=== PATIENT | male | born 1955 | race Caucasian/White ===

== ENCOUNTER 2021-04-25 07:42 | Inpatient (IN) | payer MEDICARE, SELFPAY ==
[2021-04-25] VITALS (19 sets, daily range): BP systolic 99–137; BP diastolic 55–67; PULSE 78–90; RESP 18–24; TEMP 36.2–37.8; O2SAT 88–96; BMI 38.7; BMI 40.9
--- NOTE | 2021-04-25 07:45 | ED_ITS ---
HPI - SOB/Dyspnea General Chief Complaint: Upper Respiratory Symptoms Stated Complaint: COVID+ Trouble breathing Time Seen by Provider: 04/25/21 07:45 History of Present Illness HPI Narrative: 66-year-old male former smoker with history of hypertension presents with a chief complaint of increasing shortness of breath, fatigue and poor appetite for the past few days. He states that he started having upper respiratory symptoms just over a week ago and had a positive COVID test at an [facility] a few days ago. He has a home pulse oximeter in has been checking more frequently because he has been feeling poorly and noted this morning it to be reading in the low 80s, hence his decision to come see us. He has had nausea and vomited 1 time but otherwise no GI symptoms. He has some nasal congestion and occasional sore throat he has felt feverish and had some mild chills. He becomes profoundly short of breath with minimal exertion he did receive both immunizations Related Data Allergies Allergy/AdvReac Type Severity Reaction Status Date / Time No Known Drug Allergies Allergy Verified 04/25/21 09:24 Review of Systems Review of Systems Narrative: GENERAL: See HPI HEENT: See HPI RESPIRATORY: See HPI CARDIOVASCULAR: Denies chest pain, palpitations, orthopnea, edema, GASTROINTESTINAL: Denies nausea, vomiting, abdominal pain, diarrhea, constipation, melena. : Denies dysuria, frequency, incontinence, hematuria, urinary retention. MUSCULOSKELETAL: denies weakness, joint pain, or bony pain SKIN: Denies rash, skin lesions, or other NEUROLOGIC: Denies weakness, headache, numbness, change in speech, confusion, seizures, incoordination. PSYCHIATRIC: No concerning psychosocial issues. 12 point review of systems is negative except for those stated above Patient History Social History Smoking Status: Former smoker Exam Narrative Exam Narrative: GENERAL: [66 year old patient appears stated age. Well-developed patient, in moderate distress. Increased work of breathing with very minimal exertion, initial pulse ox in the mid to upper 80s HEAD: Atraumatic. Normocephalic. EYES: Pupils equal round and reactive. Extraocular motions intact. No scleral icterus. No injection or drainage. ENT: Nose without bleeding, purulent drainage. Throat without erythema, tonsillar hypertrophy or exudate. Airway patent. NECK: Trachea midline. Non tender CARDIOVASCULAR: Regular rate and rhythm without murmurs, gallops, or rubs. RESPIRATORY: Clear to auscultation. Breath sounds equal bilaterally. No wheezes, rales, or rhonchi. GASTROINTESTINAL: Abdomen soft, non-tender, nondistended. EXTREMITIES: No edema or joint tenderness. BACK: Nontender without deformity or crepitance. No flank tenderness. NEURO: AOx3. SKIN: No rash or erythema of visible areas Initial Vital Signs Initial Vital Signs: Vital Signs Temperature 97.1 F L 04/25/21 07:53 Pulse Rate 90 04/25/21 07:53 Respiratory Rate 20 04/25/21 07:53 Blood Pressure 124/65 04/25/21 07:53 Pulse Oximetry 88 L 04/25/21 07:53 Course Orders Ordered: ED Orders 04/25/21 07:54 XR chest 1V Stat 04/25/21 07:56 COVID19 - ADMIT ([employer] swab/PCR) Stat 04/25/21 08:00 C-Reactive Protein Quant Stat Complete Blood Count AUTO DIFF Stat Comprehensive Metabolic Panel Stat D Dimer Stat Ferritin Stat Lactate (Lactic Acid) Stat Lactate Dehydrogenase Stat NT-proBNP (BNP-Adult 18+) Stat Procalcitonin Stat Troponin & CK Cardiac Panel Stat 04/25/21 08:25 Arterial Blood Gas Stat 04/25/21 08:33 Blood Culture Stat Acetaminophen (Acetaminophen 325 Mg Tablet) 650 mg PO Q6HR PRN PRN Reason: Fever/Mild Pain (1-3) Dexamethasone (Dexamethasone 10 Mg/Ml Vial) 6 mg IV DAILY [facility] Enoxaparin Sodium (Enoxaparin 40 Mg/0.4 Ml Syringe) 40 mg SUBCUT DAILY [facility] Remdesivir 100 mg/ Sodium (Chloride) 250 mls @ 250 mls/hr IV DAILY [facility] Stop: 04/29/21 09:59 Ondansetron HCl (Ondansetron 4 Mg/2 Ml Inj) 4 mg IV Q8HR PRN PRN Reason: Nausea And Vomiting Discontinued Medications Acetaminophen (Acetaminophen 325 Mg Tablet) 975 mg PO NOW ONE Stop: 04/25/21 09:40 Last Admin: 04/25/21 09:42 Dose: 975 mg Documented by: DEVIN Dexamethasone (Dexamethasone 10 Mg/Ml Vial) 6 mg IV NOW ONE Stop: 04/25/21 07:53 Last Admin: 04/25/21 08:31 Dose: 6 mg Documented by: SILVIO Remdesivir 200 mg/ Sodium (Chloride) 250 mls @ 250 mls/hr IV NOW ONE Stop: 04/25/21 08:51 Last Infusion: 04/25/21 09:52 Dose: 0 mls/hr Documented by: Admin: 04/25/21 08:32 Dose: 250 mls/hr Documented by: SILVIO Vital Signs Vital signs: Vital Signs - 8 hr 04/25/21 07:53 04/25/21 08:01 04/25/21 08:30 Temperature 97.1 F L Pulse Rate 90 87 87 Respiratory Rate 20 19 21 Blood Pressure 124/65 104/58 L Pulse Oximetry 88 L 91 90 L 04/25/21 09:00 04/25/21 09:30 Temperature Pulse Rate 84 83 Respiratory Rate 20 21 Blood Pressure 101/56 L 106/55 L Pulse Oximetry 96 95 MDM - SOB/Dyspnea Lab Data Result diagrams: 04/25/21 08:00 04/25/21 08:00 Labs: Lab Results 04/25/21 04/25/21 04/25/21 Range/Units 07:56 08:00 08:00 WBC (4.5-11.0) X10^3/uL RBC (4.5-5.9) X10^6/uL Hgb (13.5-17.5) g/dL Hct (41-53) % MCV (80-100) fL MCH (26-34) PG MCHC (30-36) % RDW (11.6-14.8) % Plt Count (150-400) X10^3/uL Neut % (Auto) (50-75) % Lymph % (Auto) (25-40) % [place] % (Auto) (3-14) % Eos % (Auto) (2-4) % Baso % (Auto) (0-2) % Neut # (Auto) (5831-2276) /uL Lymph # (Auto) (9138-2795) /uL Gordon # (Auto) (0-900) /uL Eos # (Auto) (0-450) /uL Baso # (Auto) (0-100) /uL D-Dimer 766 H (<230) ng/mL ABG pH (7.35-7.45) ABG pCO2 (35-45) mmHg ABG pO2 (80-100) mmHg ABG HCO3 (22-26) mmol/L ABG Total CO2 (21-31) mmol/L ABG O2 Saturation (95-100) % ABG Base Excess (-2-2) mmol/L FiO2 Sodium (137-145) mmol/L Potassium (3.4-5.1) mmol/L Chloride (98-107) mmol/L Carbon Dioxide (22-32) mmol/L BUN (9-20) mg/dL Creatinine (0.66-1.25) mg/dL Estimated GFR (>60) mL/min BUN/Creatinine Ratio (6-22) Glucose (80-110) mg/dL Lactate (0.7-2.1) mmol/L Calcium (8.4-10.2) mg/dL Ferritin (18-464) ng/mL Total Bilirubin (0.2-1.3) mg/dL AST (17-59) IU/L ALT (<50) IU/L Alkaline Phosphatase (38-126) U/L Lactate Dehydrogenase (313-618) U/L Total Creatine Kinase (55-170) U/L CK-MB (CK-2) (<2.37) ng/mL CK-MB (CK-2) Rel Index (1.5-5.0) % Troponin I (0.01-0.034) ng/mL C-Reactive Protein (<1.0) mg/dL NT-Pro-B Natriuret Pep (<125) pg/mL Total Protein (6.3-8.2) g/dL Albumin (3.5-5.0) g/dL Globulin (1.7-4.1) g/dL Albumin/Globulin Ratio (1.0-2.8) Procalcitonin 0.38 (<0.5) ng/mL SARS-CoV-2 (PCR) Positive H (Negative) 04/25/21 04/25/21 04/25/21 Range/Units 08:00 08:00 08:00 WBC 5.1 (4.5-11.0) X10^3/uL RBC 4.63 (4.5-5.9) X10^6/uL Hgb 13.1 L (13.5-17.5) g/dL Hct 39.1 L (41-53) % MCV 84.5 (80-100) fL MCH 28.3 (26-34) PG MCHC 33.5 (30-36) % RDW 15.5 H (11.6-14.8) % Plt Count 119 L (150-400) X10^3/uL Neut % (Auto) 81.5 H (50-75) % Lymph % (Auto) 7.5 L (25-40) % [place] % (Auto) 9.8 (3-14) % Eos % (Auto) 0.9 L (2-4) % Baso % (Auto) 0.3 (0-2) % Neut # (Auto) 4200 (2341-5840) /uL Lymph # (Auto) 400 L (6613-8921) /uL Gordon # (Auto) 500 (0-900) /uL Eos # (Auto) 0 (0-450) /uL Baso # (Auto) 0 (0-100) /uL D-Dimer (<230) ng/mL ABG pH (7.35-7.45) ABG pCO2 (35-45) mmHg ABG pO2 (80-100) mmHg ABG HCO3 (22-26) mmol/L ABG Total CO2 (21-31) mmol/L ABG O2 Saturation (95-100) % ABG Base Excess (-2-2) mmol/L FiO2 Sodium 134 L (137-145) mmol/L Potassium 3.6 (3.4-5.1) mmol/L Chloride 96 L (98-107) mmol/L Carbon Dioxide 26 (22-32) mmol/L BUN 41 H (9-20) mg/dL Creatinine 1.75 H (0.66-1.25) mg/dL Estimated GFR 39.2 L (>60) mL/min BUN/Creatinine Ratio 23.4 H (6-22) Glucose 265 H (80-110) mg/dL Lactate 2.2 H (0.7-2.1) mmol/L Calcium 9.0 (8.4-10.2) mg/dL Ferritin 576 H (18-464) ng/mL Total Bilirubin 0.7 (0.2-1.3) mg/dL AST 136 H (17-59) IU/L ALT 76 H (<50) IU/L Alkaline Phosphatase 82 (38-126) U/L Lactate Dehydrogenase 864 H (313-618) U/L Total Creatine Kinase 377 H (55-170) U/L CK-MB (CK-2) 0.68 (<2.37) ng/mL CK-MB (CK-2) Rel Index 0.2 L (1.5-5.0) % Troponin I 0.016 (0.01-0.034) ng/mL C-Reactive Protein 22.9 H (<1.0) mg/dL NT-Pro-B Natriuret Pep 57 (<125) pg/mL Total Protein 7.1 (6.3-8.2) g/dL Albumin 3.8 (3.5-5.0) g/dL Globulin 3.3 (1.7-4.1) g/dL Albumin/Globulin Ratio 1.2 (1.0-2.8) Procalcitonin (<0.5) ng/mL SARS-CoV-2 (PCR) (Negative) 04/25/21 Range/Units 08:25 WBC (4.5-11.0) X10^3/uL RBC (4.5-5.9) X10^6/uL Hgb (13.5-17.5) g/dL Hct (41-53) % MCV (80-100) fL MCH (26-34) PG MCHC (30-36) % RDW (11.6-14.8) % Plt Count (150-400) X10^3/uL Neut % (Auto) (50-75) % Lymph % (Auto) (25-40) % Gordon % (Auto) (3-14) % Eos % (Auto) (2-4) % Baso % (Auto) (0-2) % Neut # (Auto) (8922-7337) /uL Lymph # (Auto) (0252-6606) /uL Gordon # (Auto) (0-900) /uL Eos # (Auto) (0-450) /uL Baso # (Auto) (0-100) /uL D-Dimer (<230) ng/mL ABG pH 7.45 (7.35-7.45) ABG pCO2 38.0 (35-45) mmHg ABG pO2 60 L (80-100) mmHg ABG HCO3 27 H (22-26) mmol/L ABG Total CO2 28 (21-31) mmol/L ABG O2 Saturation 92 L (95-100) % ABG Base Excess 2.0 (-2-2) mmol/L FiO2 21 Sodium (137-145) mmol/L Potassium (3.4-5.1) mmol/L Chloride (98-107) mmol/L Carbon Dioxide (22-32) mmol/L BUN (9-20) mg/dL Creatinine (0.66-1.25) mg/dL Estimated GFR (>60) mL/min BUN/Creatinine Ratio (6-22) Glucose (80-110) mg/dL Lactate (0.7-2.1) mmol/L Calcium (8.4-10.2) mg/dL Ferritin (18-464) ng/mL Total Bilirubin (0.2-1.3) mg/dL AST (17-59) IU/L ALT (<50) IU/L Alkaline Phosphatase (38-126) U/L Lactate Dehydrogenase (313-618) U/L Total Creatine Kinase (55-170) U/L CK-MB (CK-2) (<2.37) ng/mL CK-MB (CK-2) Rel Index (1.5-5.0) % Troponin I (0.01-0.034) ng/mL C-Reactive Protein (<1.0) mg/dL NT-Pro-B Natriuret Pep (<125) pg/mL Total Protein (6.3-8.2) g/dL Albumin (3.5-5.0) g/dL Globulin (1.7-4.1) g/dL Albumin/Globulin Ratio (1.0-2.8) Procalcitonin (<0.5) ng/mL SARS-CoV-2 (PCR) (Negative) Imaging Data Chest x-ray: Radiologist's Impression: [address] [address] XRay Report Signed Patient: Jackson Rodriguez MR#: [id number] : 1955 Acct:[id number] Age/Sex: 66 / M Date of Service: 04/25/21 Loc: ED Accession Number: [id number] ?? Procedure: XR chest 1V Ordering Provider: Partha Hernandes D.O. PROCEDURE:? XR CHEST 1V ? INDICATIONS:? COVID+ trouble breathing ? TECHNIQUE:? One view of the chest was acquired.? ? COMPARISON:? None. ? FINDINGS:? ? Surgical changes and devices:? None.? ? Lungs and pleura:? Bilateral patchy interstitial type infiltrates are seen. Low lung volumes are noted. This causes a crowded appearance to the lung markings and limits evaluation.? No large pneumothorax or large pleural effusions are seen. ? ? Mediastinum:? Mediastinal contours appear normal.? Heart size is normal.? ? Bones and chest wall:? No suspicious bony lesions.? Overlying soft tissues appear unremarkable.? IMPRESSION:? Patchy bilateral interstitial infiltrates are seen, which are consistent with the known clinical history of COVID pneumonia.? ? ? Dictated by: Nigel Hinton M.D. on 04/25/2021 at 7:54 ? ? Approved by: Nigel Hinton M.D. on 04/25/2021 at 7:55 ? Discharge Plan Departure Patient Disposition: Admitted As Inpatient Admit Date/Time: 04/25/21 09:32 Admit Provider: Ok Joseph
--- NOTE | 2021-04-25 07:54 | DI.RAD.S_ITS ---
PROCEDURE: XR CHEST 1V INDICATIONS: COVID+ trouble breathing TECHNIQUE: One view of the chest was acquired. COMPARISON: None. FINDINGS: Surgical changes and devices: None. Lungs and pleura: Bilateral patchy interstitial type infiltrates are seen. Low lung volumes are noted. This causes a crowded appearance to the lung markings and limits evaluation. No large pneumothorax or large pleural effusions are seen. Mediastinum: Mediastinal contours appear normal. Heart size is normal. Bones and chest wall: No suspicious bony lesions. Overlying soft tissues appear unremarkable. IMPRESSION: Patchy bilateral interstitial infiltrates are seen, which are consistent with the known clinical history of COVID pneumonia. Dictated by: Nigel Hinton M.D. on 04/25/2021 at 7:54 Approved by: Nigel Hinton M.D. on 04/25/2021 at 7:55
[2021-04-25 08:19] LABS: Add Manual Diff / Slide Review NO; Basophils Absolute Auto 0 /uL (0-100); Basophils Percent Auto 0.3 % (0-2); Eosinophils Absolute Auto 0 /uL (0-450); Eosinophils Percent Auto 0.9 % (2-4); Hematocrit 39.1 % (41-53); Hemoglobin 13.1 g/dL (13.5-17.5); Lymphocytes Absolute Auto 400 /uL (1100-4500); Lymphocytes Percent Auto 7.5 % (25-40); Mean Corpuscular HGB Conc 33.5 % (30-36); Mean Corpuscular Hemoglobin 28.3 PG (26-34); Mean Corpuscular Volume 84.5 fL (80-100); Monocytes Absolute Auto 500 /uL (0-900); Monocytes Percent Auto 9.8 % (3-14); Neutrophils Absolute Auto 4200 /uL (1500-7000); Neutrophils Percent Auto 81.5 % (50-75); Platelet Count 119 X10^3/uL (150-400); Red Blood Cell Count 4.63 X10^6/uL (4.5-5.9); Red Cell Distribution Width 15.5 % (11.6-14.8); White Blood Cell Count 5.1 X10^3/uL (4.5-11.0)
[2021-04-25 08:29] LABS: D Dimer 766 ng/mL (<230)
[2021-04-25 08:31] LABS: Lactate (Lactic Acid) 2.2 mmol/L (0.7-2.1)
[2021-04-25] MEDS: DEXAMETHASONE 10 MG/ML VIAL 6 MG IV (08:31)
[2021-04-25] MEDS: REMDESIVIR 200 MG in SODIUM CHLORIDE 0.9% 210 ML 250 ML IV (08:32)
[2021-04-25 08:33] LABS: Alanine Aminotransferase 76 IU/L (<50); Albumin 3.8 g/dL (3.5-5.0); Albumin Globulin Ratio 1.2 (1.0-2.8); Alkaline Phosphatase 82 U/L (38-126); Aspartate Aminotransferase 136 IU/L (17-59); BUN Creatinine Ratio 23.4 (6-22); Bilirubin Total 0.7 mg/dL (0.2-1.3); Blood Urea Nitrogen 41 mg/dL (9-20); Carbon Dioxide 26 mmol/L (22-32); Chloride 96 mmol/L (98-107); Creatine Kinase 377 U/L (55-170); Estimated Glomerular Filt Rate 39.2 mL/min (>60); Globulin 3.3 g/dL (1.7-4.1); Glucose 265 mg/dL (80-110); HEMOLYSIS < 15 (0-50); Lactate Dehydrogenase 864 U/L (313-618); Potassium 3.6 mmol/L (3.4-5.1); Sodium 134 mmol/L (137-145); Total Protein 7.1 g/dL (6.3-8.2)
[2021-04-25 08:43] LABS: NT-proBNP (BNP-Adult 18+) 57 pg/mL (<125); Troponin I 0.016 ng/mL (0.01-0.034)
[2021-04-25 08:44] LABS: C-Reactive Protein Quant 22.9 mg/dL (<1.0)
[2021-04-25 08:46] LABS: CKMB % Relative Index 0.2 % (1.5-5.0); Creatine Kinase MB 0.68 ng/mL (<2.37)
[2021-04-25 08:47] LABS: Procalcitonin 0.38 ng/mL (<0.5)
[2021-04-25 08:53] LABS: Fractionated Inspired Oxygen 21; HCO3 ABG 27 mmol/L (22-26); Oxygen Saturation ABG 92 % (95-100); PO2 ABG 60 mmHg (80-100); TCO2 ABG 28 mmol/L (21-31); pH ABG 7.45 (7.35-7.45)
[2021-04-25 09:03] LABS: COVID19 - ADMIT (NP swab/PCR) POSITIVE (Negative)
[2021-04-25 09:06] LABS: Ferritin 576 ng/mL (18-464)
[2021-04-25] MEDS: ACETAMINOPHEN 325 MG TABLET 975 MG PO (09:42)
[2021-04-25 10:15] LABS: Reflexed Lactate in 2 Hours Y
[2021-04-25 11:16] LABS: Lactate 2HR (Lactic Acid Rflx) 1.8 mmol/L (0.7-2.1)
[2021-04-25] MEDS: INSULIN LISPRO 100 UNIT/ML 3ML VIAL SUBCUT ×3 (12:01→20:58)
[2021-04-25] MEDS: SODIUM CHLORIDE 0.9% FLUSH 10 ML IV (12:01)
--- NOTE | 2021-04-25 17:37 | P.HP_ITS ---
History of Present Illness History of Present Illness Date Patient Seen: 04/25/21 Time Patient Seen: 12:00 Chief complaint: COVID+ Trouble breathing Narrative: Mr. Rodriguez is a 66M with PMH DM, HTN, HL, hypothyroid who presents to the hospital with shortness of breath, malaise, lack of appetite. He states that he began having these symptoms approximately a week ago. He tested potivie for COVID. He has not been feeling feverish. He says this is the worst he has ever felt. He has been checking his oxygen level on a pulse ox and it was in the 80s today so he presented to the hospital. He did get vaccinated with moderna vaccine, both doses. In the ED workup was done, his vitals were notable for O2 sat in 80s on room air. His labs notable for WBC 5.1, hgb 13.1, creatinine 1.75. ABG showed pH 7.45, Pao2 60. CRP 22.9. Procal 0.38. COVID+. He had a chest xray that showed bilateral infiltrates. He was given fluids, dexamethasone and remdesivir and admitted for further treatment. When I saw him he was on supplemental oxygen and said it was the best he has felt in days. Family history: Father with CVA Patient History Medical History Diabetes Hyperlipemia Hypertension Hypothyroid Family & Social History Social History: household members spouse Prior Living Arrangements House Safety & Behavioral: Feels Safe in Current Yes Environment Been Physically Hurt or No Threatened By a Person Suicidal Ideation Description None Suicide Plan Description No Plan Tobacco & Substance use: Smoking Status Former smoker alcohol intake former Substance Use Type does not use Meds Home Medications and Allergies Home Medications Medication Instructions Recorded Confirmed Type allopurinol 300 mg tablet 300 mg PO DAILY 04/25/21 04/25/21 History hydrochlorothiazide 12.5 mg tablet 12.5 mg PO DAILY 04/25/21 04/25/21 History levothyroxine 125 mcg tablet 125 mcg PO DAILY 04/25/21 04/25/21 History lisinopril 20 mg tablet 20 mg PO DAILY 04/25/21 04/25/21 History metformin 1,000 mg tablet 1,000 mg PO BID 04/25/21 04/25/21 History simvastatin 40 mg tablet 40 mg PO DAILY 04/25/21 04/25/21 History Allergies Allergy/AdvReac Type Severity Reaction Status Date / Time No Known Drug Allergies Allergy Verified 04/25/21 09:24 Review of Systems Review of Systems Narrative: 14 systems reviewed and negative aside from what is noted in HPI Exam Vital Signs (past 8 hours): - 04/25/21 09:42 04/25/21 11:01 04/25/21 11:14 Temperature 100.1 F H 98 F Pulse Rate 87 Respiratory Rate 24 Blood Pressure 116/61 Pulse Oximetry 94 94 04/25/21 11:22 04/25/21 14:27 04/25/21 16:30 Temperature 98 F 97.8 F Pulse Rate 78 Respiratory Rate 20 Blood Pressure 99/63 Pulse Oximetry 92 92 Oxygen Delivery Method Nasal Cannula Oxygen Flow Rate 2 Narrative Exam Narrative: GEN: no acute distress HEENT: moist mucous membranes, PERRL NECK: trachea midline, no JVD CV: regular rate and rhythm no murmurs PULM: poor air movement bilaterally ABD: soft, nontender, nondistende, no organomegaly, normal bowel sounds EXT: warm and well perfused, no edema NEURO: awake and alert, moving all extremities with no focal deficits PSYCH: pleasant, cooperative Objective Labs Result Diagrams: 04/25/21 08:00 04/25/21 08:00 Labs: Laboratory Results - last 24 hr 04/25/21 04/25/21 04/25/21 07:56 08:00 08:00 WBC RBC Hgb Hct MCV MCH MCHC RDW Plt Count Neut % (Auto) Lymph % (Auto) [place] % (Auto) Eos % (Auto) Baso % (Auto) Neut # (Auto) Lymph # (Auto) [place] # (Auto) Eos # (Auto) Baso # (Auto) D-Dimer 766 H ABG pH ABG pCO2 ABG pO2 ABG HCO3 ABG Total CO2 ABG O2 Saturation ABG Base Excess FiO2 Sodium Potassium Chloride Carbon Dioxide BUN Creatinine Estimated GFR BUN/Creatinine Ratio Glucose Lactate Calcium Ferritin Total Bilirubin AST ALT Alkaline Phosphatase Lactate Dehydrogenase Total Creatine Kinase CK-MB (CK-2) CK-MB (CK-2) Rel Index Troponin I C-Reactive Protein NT-Pro-B Natriuret Pep Total Protein Albumin Globulin Albumin/Globulin Ratio Procalcitonin 0.38 SARS-CoV-2 (PCR) Positive H 1004/25/21 04/25/21 08:00 08:00 08:00 WBC 5.1 RBC 4.63 Hgb 13.1 L Hct 39.1 L MCV 84.5 MCH 28.3 MCHC 33.5 RDW 15.5 H Plt Count 119 L Neut % (Auto) 81.5 H Lymph % (Auto) 7.5 L [place] % (Auto) 9.8 Eos % (Auto) 0.9 L Baso % (Auto) 0.3 Neut # (Auto) 4200 Lymph # (Auto) 400 L [place] # (Auto) 500 Eos # (Auto) 0 Baso # (Auto) 0 D-Dimer ABG pH ABG pCO2 ABG pO2 ABG HCO3 ABG Total CO2 ABG O2 Saturation ABG Base Excess FiO2 Sodium 134 L Potassium 3.6 Chloride 96 L Carbon Dioxide 26 BUN 41 H Creatinine 1.75 H Estimated GFR 39.2 L BUN/Creatinine Ratio 23.4 H Glucose 265 H Lactate 2.2 H Calcium 9.0 Ferritin 576 H Total Bilirubin 0.7 AST 136 H ALT 76 H Alkaline Phosphatase 82 Lactate Dehydrogenase 864 H Total Creatine Kinase 377 H CK-MB (CK-2) 0.68 CK-MB (CK-2) Rel Index 0.2 L Troponin I 0.016 C-Reactive Protein 22.9 H NT-Pro-B Natriuret Pep 57 Total Protein 7.1 Albumin 3.8 Globulin 3.3 Albumin/Globulin Ratio 1.2 Procalcitonin SARS-CoV-2 (PCR) 04/25/21 04/25/21 08:25 10:55 WBC RBC Hgb Hct MCV MCH MCHC RDW Plt Count Neut % (Auto) Lymph % (Auto) [place] % (Auto) Eos % (Auto) Baso % (Auto) Neut # (Auto) Lymph # (Auto) [place] # (Auto) Eos # (Auto) Baso # (Auto) D-Dimer ABG pH 7.45 ABG pCO2 38.0 ABG pO2 60 L ABG HCO3 27 H ABG Total CO2 28 ABG O2 Saturation 92 L ABG Base Excess 2.0 FiO2 21 Sodium Potassium Chloride Carbon Dioxide BUN Creatinine Estimated GFR BUN/Creatinine Ratio Glucose Lactate 1.8 Calcium Ferritin Total Bilirubin AST ALT Alkaline Phosphatase Lactate Dehydrogenase Total Creatine Kinase CK-MB (CK-2) CK-MB (CK-2) Rel Index Troponin I C-Reactive Protein NT-Pro-B Natriuret Pep Total Protein Albumin Globulin Albumin/Globulin Ratio Procalcitonin SARS-CoV-2 (PCR) Assessment & Plan Assessment & Plan narrative: Mr. Rodriguez is a 66M with PMH DM, HTN who presents with shortness of breath found to have covid pneumonia 1. Acute hypoxemic respiratory failure with COVID pneumonia -patient has been vaccinated -continue on O2 for goal >90% -continue dexamethasone, remdesivir -continue to encourage proning 2. Type 2 Diabetes -hold metformin -start low dose lantus and insulin sliding scale 3. HTN -hold hctz and lisinopril given illness and elevated creatinine 4. Elevated creatinine, probable [place] -did get fluid on admission, continue IVF -recheck in AM 5. Hyperlipidemia -hold statin for now CODE: Full Proxy: Sheryl Rodriguez, spouse I have utilized all available resources to review update, and confirm his current medications Time Spent With Patient Critical Care time: I spent a total of [] minutes of critical care time on this patient's care today; this time is exclusive of procedural time. Quality MIPS - Admit I confirm the patient?s Advance Care Plan is present, Code status is documented, Surrogate decision maker is in patient?s record [If Yes, STOP here]: Yes
[2021-04-25] MEDS: SODIUM CHLORIDE 0.9% 1,000 ML 100 ML IV (19:09)
[2021-04-25] MEDS: INSULIN GLARGINE 100 UNIT/ML 3ML PEN 10 UNIT SUBCUT (20:58)
[2021-04-25] MEDS: ACETAMINOPHEN 325 MG TABLET 650 MG PO (21:07)
[2021-04-26] VITALS (13 sets, daily range): BP systolic 98–127; BP diastolic 64–77; PULSE 70–83; RESP 18–20; TEMP 36.8–37.7; O2SAT 92–97
--- NOTE | 2021-04-26 00:52 | PC.NURSE ---
Patient is alert and oriented. Breath sounds diminished in left LL but CTA. On oxygen at 4L/min with sat of 95%. Denies SOB at rest or when getting up at side of bed to use urinal but states he still feels SOB and coughs when taking deep breaths. Is able to speak in complete sentences. States he is feeling much better than on admission. HRR. Denies nausea. BT present and abdomen is soft. Denies dysuria, frequency or urgency; urine is clear, light nilson. Is able to move self in bed and verbalizes importance of proning; instructed to call for assistance is needing assistance with positioning. Denies pain. Declines use of SCD's so reminded of purpose and importance to ankle wave when SCD's not in use. On isolation for covid as per policy. Fall risk score is high but alarm is not in use. Patient up just to side of bed to use urinal and verbalizes agreement to call for assistance if wanting to walk to bathroom etc.
[2021-04-26] MEDS: SODIUM CHLORIDE 0.9% 1,000 ML 100 ML IV (05:11)
[2021-04-26] MEDS: LEVOTHYROXINE 125 MCG TABLET PO (05:12)
[2021-04-26 07:09] LABS: Add Manual Diff / Slide Review NO; Basophils Absolute Auto 0 /uL (0-100); Basophils Percent Auto 0.4 % (0-2); Eosinophils Absolute Auto 0 /uL (0-450); Eosinophils Percent Auto 0.1 % (2-4); Hematocrit 37.3 % (41-53); Hemoglobin 12.4 g/dL (13.5-17.5); Lymphocytes Absolute Auto 400 /uL (1100-4500); Lymphocytes Percent Auto 6.3 % (25-40); Mean Corpuscular HGB Conc 33.3 % (30-36); Mean Corpuscular Hemoglobin 28.2 PG (26-34); Mean Corpuscular Volume 84.7 fL (80-100); Monocytes Absolute Auto 400 /uL (0-900); Monocytes Percent Auto 7.2 % (3-14); Neutrophils Absolute Auto 5100 /uL (1500-7000); Platelet Count 105 X10^3/uL (150-400); Red Blood Cell Count 4.41 X10^6/uL (4.5-5.9); Red Cell Distribution Width 15.2 % (11.6-14.8); White Blood Cell Count 5.9 X10^3/uL (4.5-11.0)
[2021-04-26 07:22] LABS: BUN Creatinine Ratio 33.9 (6-22); Blood Urea Nitrogen 43 mg/dL (9-20); Calcium 8.8 mg/dL (8.4-10.2); Carbon Dioxide 28 mmol/L (22-32); Chloride 99 mmol/L (98-107); Estimated Glomerular Filt Rate 56.7 mL/min (>60); Glucose 337 mg/dL (80-110); HEMOLYSIS < 15 (0-50); Sodium 133 mmol/L (137-145)
[2021-04-26] MEDS: DEXAMETHASONE 10 MG/ML VIAL 6 MG IV (08:03)
[2021-04-26] MEDS: ENOXAPARIN 40 MG/0.4 ML SYRINGE SUBCUT ×2 (08:04→21:51)
[2021-04-26] MEDS: REMDESIVIR 100 MG in SODIUM CHLORIDE 0.9% 230 ML 250 ML IV (08:04)
[2021-04-26] MEDS: SODIUM CHLORIDE 0.9% FLUSH 10 ML IV ×2 (08:04→22:34)
[2021-04-26] MEDS: INSULIN GLARGINE 100 UNIT/ML 3ML PEN 10 UNIT SUBCUT (08:04)
[2021-04-26] MEDS: INSULIN LISPRO 100 UNIT/ML 3ML VIAL SUBCUT ×4 (08:28→21:47)
--- NOTE | 2021-04-26 11:01 | CM.DANOTE ---
Patient is a 66 yo male who was admitted on 04/25/21 for COVID+/SOB. Pt has [facility] for insurance and his PCP is Charly Marques. EMR was reviewed. Per MD, pt who is fully vaccinated and tested positive with COVID a few days ago and admitted with increasing symptoms and on 3LO2. SW called pt's room phone for assessment due to COVID+ precautions and explained role and pt confirms he lives at home with his spouse on [address] and their Dtr and KIERAN live nearby as well. Pt is active and independent at baseline and drives and does not use DME. Pt states he, his Dtr and KIERAN all tested positive for COVID but pt's spouse did not and has no symptoms herself. Pt states their home allows them the ability to quarantine from each other as pt can be upstairs and spouse downstairs and she plans to provide transport and assist at d/c with safety protocols in place. Pt does not anticipate any needs at d/c and preference is home once stable. Plan: SW to follow closely for plan of d/c home once medically stable with spouse assist and any further identified discharge planning needs. LIDA Buenrostro Discharge Planning/Care Management CM Discharge Assessment Start: 04/26/21 10:59 Freq: Status: Active Protocol: Document 04/26/21 11:00 (Rec: 04/26/21 11:01 [id number]) Discharge Planning Assessment Assigned Rebar Fabricator LIDA Hernández DPOA/Assigned Designee Name spouse Sheryl Contact Information [phone] Advance Directives? No Advance Directives on File No History Provided By Patient,Medical Record Has Patient been admitted in last 30 No days? Prior Living Arrangements House Household Members spouse Type of transporation used prior to Drives own vehicle admit Independent with ADL's Yes Is patient alert and oriented? Yes Caregiver for Another No Barriers to Discharge No Discharge Plan Home Transportation Arrangement Spouse can provide transport home at d/c Referrals Initiated None needed Review Status In Process Please Provide Date Initial DC 04/26/21 Assessment Was Performed Next Review Type Continued Stay Review
--- NOTE | 2021-04-26 13:40 | PC.NURSE ---
Patient sats on RA at rest 92-94%, with ambulation sats 88-91%. Patient reports feeling a bit short of breath but feels so much better than two days ago at home. Denies pain, afebrile.
--- NOTE | 2021-04-26 15:58 | PM.PN.1 ---
Subjective Subjective Date Patient Seen: 04/26/21 Interval history: 66 y/o male admitted to the hospital with acute hypoxic respiratory failure secondary to Covid-19 pneumonia. Patient is resting comfortably without oxygen. He does desaturate with activity. He is concerned about needing oxygen at home. He has recived 2 doses of remedesivir. Exam Vital Signs (past 8 hours): - 04/26/21 08:33 04/26/21 09:59 04/26/21 10:31 Temperature 99.9 F H Pulse Rate 83 Respiratory Rate 20 Blood Pressure 120/64 Pulse Oximetry 93 93 93 04/26/21 11:16 04/26/21 11:17 04/26/21 12:20 Temperature 98.8 F Pulse Rate 79 Respiratory Rate 18 Blood Pressure 107/72 Pulse Oximetry 94 94 93 Oxygen Delivery Method Room Air Oxygen Flow Rate 0 Narrative Exam Narrative: Pleasant gentleman in no acute distress Resp Other: Lungs: decreased breath sounds with scattered crackles bilaterally Cardio Other: RRR nl Sl s2 GI Other: Abd: soft/ non tender/ non distended Extrem Other: no edema Objective Labs Result Diagrams: 04/26/21 06:30 04/26/21 06:30 Labs: Laboratory Results - last 24 hr 04/26/21 04/26/21 06:30 06:30 WBC 5.9 RBC 4.41 L Hgb 12.4 L Hct 37.3 L MCV 84.7 MCH 28.2 MCHC 33.3 RDW 15.2 H Plt Count 105 L Neut % (Auto) 86.0 H Lymph % (Auto) 6.3 L [place] % (Auto) 7.2 Eos % (Auto) 0.1 L Baso % (Auto) 0.4 Neut # (Auto) 5100 Lymph # (Auto) 400 L [place] # (Auto) 400 Eos # (Auto) 0 Baso # (Auto) 0 Sodium 133 L Potassium 4.0 Chloride 99 Carbon Dioxide 28 BUN 43 H Creatinine 1.27 H Estimated GFR 56.7 L BUN/Creatinine Ratio 33.9 H Glucose 337 H Calcium 8.8 PFSH Medical History Diabetes Hyperlipemia Hypertension Hypothyroid Social History household members: spouse Smoking Status: Former smoker alcohol intake: former Assessment & Plan Assessment & Plan narrative: ?Acute hypoxemic respiratory failure with COVID pneumonia -patient has been vaccinated -continue on O2 for goal >90% -continue dexamethasone, remdesivir -continue to encourage proning -oxygenation improving but not back to normal 2. Type 2 Diabetes -hold metformin -start low dose lantus and insulin sliding scale -elevated blood sugars secondary to steroids 3. HTN -hold hctz and lisinopril given illness and elevated creatinine 4. Elevated creatinine, probable [place] -did get fluid on admission, continue IVF -recheck in AM -heplock now 5. Hyperlipidemia -hold statin for now 6. Morbid Obesity -dietary consultatation CODE: Full Proxy: Sheryl Jennifer, spouse I have utilized all available resources to review update, and confirm his current medications Time Spent With Patient Critical Care time: I spent a total of [] minutes of critical care time on this patient's care today; this time is exclusive of procedural time.
[2021-04-26] MEDS: INSULIN GLARGINE 100 UNIT/ML 3ML PEN 20 UNIT SUBCUT (21:46)
[2021-04-27] VITALS: BP 147/79; PULSE 79; RESP 20; TEMP 37; O2SAT 91; O2SAT 92
[2021-04-27 04:00] VITALS: O2SAT 94
[2021-04-27 05:32] VITALS: BP 100/80; PULSE 65; RESP 18; TEMP 36.6; O2SAT 95
[2021-04-27] MEDS: LEVOTHYROXINE 125 MCG TABLET PO (05:36)
[2021-04-27 09:00] VITALS: BP 113/66; PULSE 70; RESP 14; TEMP 35.5; O2SAT 92
[2021-04-27] MEDS: INSULIN LISPRO 100 UNIT/ML 3ML VIAL SUBCUT ×2 (09:05→11:18)
[2021-04-27] MEDS: DEXAMETHASONE 10 MG/ML VIAL 6 MG IV (09:06)
[2021-04-27] MEDS: REMDESIVIR 100 MG in SODIUM CHLORIDE 0.9% 230 ML 250 ML IV (09:08)
[2021-04-27] MEDS: SODIUM CHLORIDE 0.9% FLUSH 10 ML IV (09:08)
[2021-04-27] MEDS: ENOXAPARIN 40 MG/0.4 ML SYRINGE SUBCUT (09:08)
[2021-04-27] MEDS: ACETAMINOPHEN 325 MG TABLET 650 MG PO (09:09)
--- NOTE | 2021-04-27 09:55 | PC.NURSE ---
Day shift: Pt ambulated around room on RA and O2 was 90-93%. Dr Navarrete has been informed of this.
[2021-04-27 09:57] VITALS: O2SAT 91
--- NOTE | 2021-04-27 10:35 | P.DS_ITS ---
History of Present Illness History of Present Illness Date Patient Seen: 04/27/21 Time Patient Seen: 10:35 Chief complaint: COVID+ Trouble breathing Narrative: Mr. Rodriguez is a 66M with PMH DM, HTN, HL, hypothyroid who presents to the hospital with shortness of breath, malaise, lack of appetite. He states that he began having these symptoms approximately a week ago. He tested potivie for COVID. He has not been feeling feverish. He says this is the worst he has ever felt. He has been checking his oxygen level on a pulse ox and it was in the 80s today so he presented to the hospital. He did get vaccinated with moderna vaccine, both doses. In the ED workup was done, his vitals were notable for O2 sat in 80s on room air. His labs notable for WBC 5.1, hgb 13.1, creatinine 1.75. ABG showed pH 7.45, Pao2 60. CRP 22.9. Procal 0.38. COVID+. He had a chest xray that showed bilateral infiltrates. He was given fluids, dexamethasone and remdesivir and admitted for further treatment. When I saw him he was on supplemental oxygen and said it was the best he has felt in days. Discharge Providers Provider Date of admission: 04/25/21 09:32 Discharge Date: 04/27/21 Primary care physician: Charly Marques MD Consults: 04/26/21 16:04 Consult to Dietitian, Adult Routine Comment: Reason For Exam: morbid obesity/diabetes Discharge provider: Ayse Navarrete MD Summary Hospital Course Discharge Diagnosis: 1. Acute hypoxic respiratory failure 2. COVID pneumonia 3. Type 2 diabetes 4. Hypertension 5. Hyperlipidemia 6. Morbid obesity Hospital Course: Patient is a delightful 66-year-old male who was admitted to the hospital for recurrent infection due to COVID pneumonia. He was placed on IV remdesivir plus Decadron. He initially was hypoxic with desaturation in the 80% with ambulation. After 48 hours of treatment the patient was able to ambulate without desaturation. His O2 sat dropped to 91% after 5 laps in the room. Room air sat is 93% on room air. Patient continues to have a nonproductive cough. Overall he feels significantly improved. Patient was deemed appropriate for discharge home. He does live on [address], patient does not have a PCP over there, he will follow-up with the clinic on [address] for e valuation. His primary care provider is in [place] . Patient is planning to follow-up with him ultimately for a post hospital visit. The patient was given the option to follow up with the [facility] as he will be living in the area. At this time he has no specific complaints. He is deemed appropriate for discharge home. Status at Discharge Cognitive/behavioral status at discharge: oriented Functional status at discharge: independent ambulation Overall status at discharge: patient is progressing back to baseline Exam Vital Signs (past 8 hours): - 04/27/21 04:00 04/27/21 05:32 04/27/21 09:00 Temperature 97.9 F 96 F L Pulse Rate 65 70 Respiratory Rate 18 14 Blood Pressure 100/80 113/66 Pulse Oximetry 94 95 92 04/27/21 09:57 Temperature Pulse Rate Respiratory Rate Blood Pressure Pulse Oximetry 91 Oxygen Delivery Method Room Air Oxygen Flow Rate 1 Narrative Exam Narrative: Pleasant gentleman resting comfortably in no obvious distress Resp Other: Decreased breath sounds with occasional scattered crackles Cardio Other: Cardiac exam: Regular rate and rhythm normal S1-S2 GI Other: Abdomen: Soft and nontender Extrem Other: Extremities: No edema Objective Labs Result Diagrams: 04/26/21 06:30 04/26/21 06:30 REPLACED BY [facility] Medical History Diabetes Hyperlipemia Hypertension Hypothyroid Social History household members: spouse Smoking Status: Former smoker alcohol intake: former Discharge Assessment & Plan Assessment and Plan Assessment: 1. Acute REspiratory Failure 2. Covid Pneumonia 3. Type 2 Diabetes 4. Hypertension 5. Hyperlipidemia Plan of Treatment: continue decadron for 2 additional days. Resume usual home medications Discharge Plan Discharge Plan Patient Disposition: Home Discharge orders & Medications Prescriptions: New dexamethasone 6 mg tablet 6 mg PO DAILY Qty: 2 RF: 0 Continued simvastatin 40 mg Tablet 40 mg PO DAILY RF: 0 metformin 1,000 mg Tablet 1,000 mg PO BID RF: 0 allopurinol 300 mg Tablet 300 mg PO DAILY RF: 0 lisinopril 20 mg Tablet 20 mg PO DAILY RF: 0 levothyroxine 125 mcg Tablet 125 mcg PO DAILY RF: 0 hydrochlorothiazide 12.5 mg Tablet 12.5 mg PO DAILY RF: 0 Follow up/Referrals: Charly Marques MD [Primary Care Provider] - Discharge Health Status Multidrug resistant organism: No MDRO Diet/Activity/Treatments Diet: Low-fat and Low-sodium Skin/Wound/Dressing Care Report to your healthcare provider any signs of infection, such as:: chills, fever Discharge Data Primary Care Provider: Charly Marques
[2021-04-27 10:40] LABS: BUN Creatinine Ratio 33.9 (6-22); Blood Urea Nitrogen 38 mg/dL (9-20); Carbon Dioxide 30 mmol/L (22-32); Chloride 100 mmol/L (98-107); Estimated Glomerular Filt Rate > 60.0 mL/min (>60); Glucose 337 mg/dL (80-110); HEMOLYSIS < 15 (0-50); Sodium 136 mmol/L (137-145)
[2021-04-27 12:15] VITALS: O2SAT 92
--- NOTE | 2021-04-27 13:24 | PC.NURSE ---
Day shift: Paperwork signed and all questions answered. This investigative writer has also talked with Pt's spouse on the phone and given her basic instructions r/t s/s of Pt's condition worsening. Pt has all personal belongings. MD script sent electronic by MD to Pt's pharmacy. [place] to car that his spouse is driving in [place] by this investigative writer. Pt tolerated well. Pt encouraged to remeber to deep breath and use I>S. as directed. Also encouraged to monitor his O2 sats at home and to keep above 90%. Also encouraged to rest and allow his body time to heal and recover. Pt very responsive to all teachings today. Pt left unit at approx 1320. He stated I'm happy to be going home today. Also encouraged Pt to set up an MD on [address] for any future medical needs.
== END 2021-04-27 13:29 | disposition home or self-care (01) | DRG 177 ==
LOC: ED 09:31 → AC 09:36
PROVIDERS: Internal Medicine; Admitting Provider Internal Medicine; Emergency Provider Emergency Medicine; PCP Family Medicine; Referring Provider Emergency Medicine; Visit Provider Internal Medicine
DX: U07.1 COVID-19 (principal); J12.82 Pneumonia due to coronavirus disease 2019; J96.01 Acute respiratory failure with hypoxia; N17.9 Acute kidney failure, unspecified; Z68.41 Body mass index [BMI] 40.0-44.9, adult; Z79.84 Long term (current) use of oral hypoglycemic drugs; E11.9 Type 2 diabetes mellitus without complications; I10 Essential (primary) hypertension; E66.01 Morbid (severe) obesity due to excess calories; E78.5 Hyperlipidemia, unspecified; E03.9 Hypothyroidism, unspecified; Z87.891 Personal history of nicotine dependence
CPT/HCPCS: 36415; 36600; 71045; 80048; 80053; 82550; 82553; 82728; 82805; 82962; 83605; 83615; 83880; 84145; 84484; 85025; 85379; 86140; 87040; 87635; 94760; 96365; 96375; 99284; C9803; J1100; J1650; J1815